=== PATIENT | male | born 1965 | race Caucasian/White ===

== ENCOUNTER 2017-05-18 21:49 | Inpatient (IN) | payer BC, OTHER ==
[~2017-05-18] VITALS: Ht 172.7 cm; Wt 86.2 kg
[2017-05-18 23:00] VITALS: BP 144/86
--- NOTE | 2017-05-18 23:00 | NUR ---
Pre-Admission Patient seen in intake office. Patient is noted to moderately intoxicated but stable at this time to continue with admission assessment. V/S noted as: 144/86, 76, 98.0, 18, 95%, 0/10. Policies on medication disposal explained and understood by patient. Will continue with admission process to unit.
--- NOTE | 2017-05-18 23:30 | NUR ---
Admission Patient is a 51 year old male from [facility], admitted to [facility] to receive treatment for his Opioid and Benzo Dependence. Patient was escorted on to unit by male TOY CONSULTANT where body check was rendered. Skin check rendered by male nurse with patient noted with two abdominal scars due to patients surgical history of colon resection and old Stoma site. Skin is noted intact. Patient is able to provide Urine drug screen upon arrival to unit. Patient verbalizes no known allergies. Height noted as 58 and weight noted as 190lbs. Patient is ambulatory with no assistance needed. Patient is visibly intoxicated and noted to answer questions with eyes closed. Breathing is even and non labored with no signs of SOB. No pain or discomfort verbalized. BUE and BLE noted to be WNL with no edema noted. Lung sounds clear with no cough noted. Bowel sounds are active in all 4 quadrants with LBM noted 05/18/17. Patient verbalizes past medical history as hyperlipidemia, HTN, GERD, History of Colon resection. All home medications reconciled. No history of Seizure noted. Patient denies any suicidal ideations. He describes his usage as: 1. Opioids-OxyContin, for the past month, 10-15 tabs of 30mg, PO or via nasal, with last dose take prior to admission 05/18/17 2100 taking 5 tabs of 30mg 2. Benzos- Klonopin, for the past month, 1-1.5 tabs of 2mg, PO, with the last dose taken prior to admission 05/18/17 2100 taking 2mg Patient explains All of surgeries started Nov of this year. My last surgery were they reconnected my colon and removed my colostomy was about a month ago. I was prescribed Oxys and it was down hill from there. I would get the Klonopin from a pill dealer only for sleeping purposes. Patient also explained of having 9 years sober between 2007 to 2014. Patient states when I was prescribed oxys it woke the beast up. Im glad I caught it when I did. Patient verbalizes his signs and symptoms of "sweaty, achy, chills, restless, nausea. 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 I need to call work tomorrow to make sure they are taken care off. Admission CIWA and COWS noted to be 0. All information relayed to Dr. Oconnell. Labs to be rendered. PRN medications available for increased signs and symptoms. Will continue plan of acre as ordered.
[2017-05-18] MEDS ORDERED: IBUPROFEN 600 MG TABLET PO PRN (23:45)
[2017-05-18] MEDS ORDERED: diphenhydrAMINE 50 MG CAPSULE PO PRN (23:45)
[2017-05-18] MEDS ORDERED: BUPRENORPHINE HCL 2 MG TAB.SUBL SL PRN (23:45)
[2017-05-18] MEDS ORDERED: METHOCARBAMOL 750 MG TABLET PO PRN (23:45)
[2017-05-18] MEDS ORDERED: LOPERAMIDE HCL 2 MG CAPSULE PO PRN ×2 (23:45)
[2017-05-18] MEDS ORDERED: ONDANSETRON 4 MG/2 ML VIAL IM PRN (23:45)
[2017-05-18] MEDS ORDERED: MAG HYDROX/AL HYDROX/SIMETH 30 ML LIQUID UDC PO PRN (23:45)
[2017-05-18] MEDS ORDERED: DICYCLOMINE HCL 20 MG TABLET PO PRN (23:45)
[2017-05-18] MEDS ORDERED: ACETAMINOPHEN 325 MG TABLET PO PRN (23:45)
[2017-05-18] MEDS ORDERED: CLONIDINE HCL 0.1 MG TABLET PO PRN (23:45)
[2017-05-18] MEDS ORDERED: MAGNESIUM HYDROXIDE 30 ML LIQUID UDC PO PRN (23:45)
[2017-05-18] MEDS ORDERED: ONDANSETRON ODT 4 MG TAB.RAPDIS SL PRN (23:45)
[2017-05-18] MEDS ORDERED: MIRALAX 17 GM POWD.PACK PO PRN (23:45)
[2017-05-18] MEDS ORDERED: LORAZEPAM 1 MG TABLET PO ONE (23:55)
[2017-05-19 00:03] LABS: *AMPHETAMINE, URINE NEGATIVE (NEGATIVE); *BARBITURATE, URINE NEGATIVE (NEGATIVE); *CANNABINOID, URINE NEGATIVE (NEGATIVE); *COCCAINE, URINE NEGATIVE (NEGATIVE); *PHENCYCLIDINE SCREEN,URINE NEGATIVE (NEGATIVE)
[2017-05-19 00:30] VITALS: BP 119/82
[2017-05-19 01:12] LABS: ETHANOL < 3 MG/DL (0-0)
[2017-05-19 01:17] LABS: ALANINE AMINOTRANSFERASE 11 U/L (16-63); ALKALINE PHOSPHATASE 80 U/L (50-136); ASPARTATE AMINOTRANSFERASE 14 U/L (15-37); BILIRUBIN,TOTAL 0.4 mg/dL (0.2-1.0); CARBON DIOXIDE 30 mmol/L (21-32); CHLORIDE 99 mmol/L (98-107); CREATININE 1.1 mg/dL (0.6-1.3); GLUCOSE 79 mg/dL (74-106); POTASSIUM 3.5 mmol/L (3.5-5.1); TOTAL PROTEIN, SERUM 8.8 g/dL (6.4-8.2); UREA NITROGEN, BLOOD 9 mg/dL (7-18)
[2017-05-19 01:18] LABS: BASOPHILS % (AUTO) 0.3 % (0.0-2.0); EOSINOPHILS # (AUTO) 0.1 K/uL (0.0-0.7); EOSINOPHILS % (AUTO) 1.2 % (0.0-7.0); HEMATOCRIT 42.7 % (40-50); HEMOGLOBIN 14.1 G/DL (14.0-18.0); LYMPHOCYTES % (AUTO) 23.6 % (20.5-51.5); MEAN CORPUSCULAR HEMOGLOBIN 27.6 UUG (27.0-31.0); MEAN CORPUSCULAR HGB CONC 33 g/dL (32.0-37.0); MONOCYTES # (AUTO) 0.5 K/UL (0.1-1.30); MONOCYTES % (AUTO) 5.4 % (0.0-11.0); NEUTROPHILS # (AUTO) 5.8 K/UL (1.8-8.9); NEUTROPHILS % (AUTO) 69.5 % (38.5-71.5); PLATELET COUNT (AUTO) 383 K/UL (150-450); RED BLOOD CELL COUNT(AUTO) 5.09 MIL/UL (4.7-6.1); WHITE BLOOD COUNT (AUTO) 8.4 K/UL (4.0-11.2)
[2017-05-19 01:27] LABS: THYROID STIMULATING HORMONE 1.073 mIU/mL (0.358-3.740)
[2017-05-19 02:00] LABS: *OPIATE, URINE POSITIVE (NEGATIVE)
[2017-05-19 04:00] VITALS: BP 123/60
[2017-05-19] MEDS ORDERED: SENN-167 PO (04:10)
[2017-05-19] MEDS ORDERED: AMLO5TAB2 PO (04:10)
[2017-05-19] MEDS ORDERED: DOCU100C36 PO (04:10)
[2017-05-19] MEDS ORDERED: RANI150T8 PO (04:13)
[2017-05-19] MEDS ORDERED: VALS160T2 PO (04:13)
[2017-05-19] MEDS ORDERED: SIMV20TA6 PO (04:13)
[2017-05-19] MEDS ORDERED: VENL75CA56 PO (04:14)
--- NOTE | 2017-05-19 07:17 | NUR ---
End of Shift Patient is in bed sleeping. Breathing even and non labored. No signs of pain or discomfort noted. Patient is a 51 year old male, admitted on 05/18/17 for Opioid and Benzo dependence. Patient is set to receive 5 day Ativan and 5 day Subutex taper. No known allergies, full code, regular diet, placed on fall and seizure precautions. Skin noted intact. Past medical history of HTN, Hyperlipidemia, GERD, Depression, and history of colon resection. Admission CIWA and COWS noted to be 0. All needs attended to promptly. Will endorse to continue plan of care as ordered.
[2017-05-19 08:00] VITALS: BP 119/77
[2017-05-19] MEDS: LORAZEPAM 1 MG TABLET PO SCH ×4 (08:13→21:31)
[2017-05-19] MEDS: MULTIVITAMINS,THERAPEUTIC TABLET PO SCH (08:14)
[2017-05-19] MEDS: BUPRENORPHINE HCL 2 MG TAB.SUBL SL SCH ×4 (08:14→21:00)
--- NOTE | 2017-05-19 08:15 | NUR ---
START OF SHIFT: RECEIVED PT A/O X 4. HE C/O ANXIETY AND RESTLESSNESS. ATIVAN /SUBUTEX TAPER WAS TO START THIS AM. ATIVAN ADMINISTERED BUT PT STATES HE WOULD LIKE TO WAIT UNTIL LATER TO START SUBUTEX HE STATES HE IS NOT IN TOTAL WITHDRAWAL AND IS FEARFUL. COWS 6 CIWA 4.OFFERED SUPPORT. WILL REASSESS COWS AND CIWA AT NOON. PPD PLANTED TO LFA. ENCOURAGED INCREASED FLUIDS. ENCOURAGED REST TODAY. WILL CONTINUE TO MONITOR AND OFFER SUPPORT.
[2017-05-19] MEDS ORDERED: TUBERCULIN,PURIF.PROT.DERIV. 5 TU/0.1 ML TEST ID ONE (09:00)
[2017-05-19 12:00] VITALS: BP 143/94
[2017-05-19 16:00] VITALS: BP 137/83
[2017-05-19] MEDS: VENLAFAXINE XR 75 MG CAP.SR.24H PO SCH (16:30)
[2017-05-19] MEDS: RANITIDINE 150 MG PO SCH (17:00)
--- NOTE | 2017-05-19 17:15 | NUR ---
COWS AND CIWA DEFERRED. MEDS HELD PT IS ASLEEP. RESPIRATIONS EVEN AND UNLABORED. BED LOCKED AND LOW. CALL RICHEY IN REACH. WILL CONTINUE TO MONITOR.
--- NOTE | 2017-05-19 18:46 | NUR ---
END OF SHIFT: PT ON SUBUTEX/ATIVAN TAPER. HELD SUBUTEX ALL DAY PT STATED HE WAS NOT READY FOR IT. ATIVAN ADMINISTERED. NOON COWS 5 CIWA 2 1600 COWS AND CIWA DEFERRED AND 1700 MEDS HELD PT WAS ASLEEP. PPD PLANTED TO LFA. PT COMPLIANT WITH INCREASED FLUIDS. WILL PASS SHIFT REPORT TO ONCOMING NIGHT NURSE
--- NOTE | 2017-05-19 19:30 | NUR ---
Start of Shift Patient Received. Patient is in activities room participating group meeting. Patient is a 51 year old male, admitted on 05/18/17 for Opioid and Benzo dependence. Patient is currently receiving a 5 day Ativan and 5 day Subutex taper. No known allergies, full code, regular diet, placed on fall and seizure precautions. Skin noted intact. Past medical history of HTN, Hyperlipidemia, GERD, Depression, and history of colon resection. Per endorsement patient has been noted to refuse Subutex. 1700 patients medications held due to patient sleeping. COWS and CIWA deferred. All needs attended to promptly. Will continue plan of care as ordered.
[2017-05-19 20:40] VITALS: BP 134/85
[2017-05-19] MEDS: SIMVASTATIN 20 MG PO SCH (21:30)
--- NOTE | 2017-05-19 21:40 | NUR ---
Subutex Refused Patient refused 2100 Subutex and verbalized I just dont think I need it. COWS noted to be 5. MD Aware. Will continue to monitor.
[2017-05-20 00:25] VITALS: BP 117/73
[2017-05-20 04:35] VITALS: BP 121/70
--- NOTE | 2017-05-20 07:11 | NUR ---
End of Shift Patient is in bed sleeping. Breathing even and non labored. No signs of pain or discomfort noted. Patient is a 51 year old male, admitted on 05/18/17 for Opioid and Benzo dependence. Patient is currently receiving a 5 day Ativan taper and 5 day Subutex taper. No known allergies, full code, regular diet, placed on fall and seizure precautions. Skin noted intact. Past medical history of HTN, Hyperlipidemia, GERD, Depression, and history of colon resection. Patient refused 2100 dose of Subutex. No PRN Medications administered. All needs attended to promptly. Will endorse to continue plan of care as ordered.
[2017-05-20 08:00] VITALS: BP 136/89
[2017-05-20] MEDS: MULTIVITAMINS,THERAPEUTIC TABLET PO SCH (08:05)
[2017-05-20] MEDS: LORAZEPAM 1 MG TABLET PO SCH ×3 (08:05→20:45)
[2017-05-20] MEDS: AMLODIPINE 5 MG TABLET PO SCH (08:05)
[2017-05-20] MEDS: VENLAFAXINE XR 75 MG CAP.SR.24H PO SCH (08:05)
--- NOTE | 2017-05-20 08:05 | NUR ---
START OF SHIFT: RECEIVED PT A/O X 4. HE C/O ANXIETY AND RESTLESSNESS,STOMACH CRAMPS, BODY ACHES,CHILLS,YAWNS,STUFFY NOSE AND FATIGUE.. ATIVAN /SUBUTEX TAPER IN PROGRESS. PRN BENTYL GIVEN FOR STOMACH CRAMPS. HE IS COMPLIANT WITH MEDS. COWS 13 CIWA 3 ENCOURAGED INCREASED FLUIDS. ENCOURAGED REST.OFFERED SUPPORT WILL CONTINUE TO MONITOR AND OFFER SUPPORT.
[2017-05-20] MEDS: RANITIDINE 150 MG PO SCH ×2 (08:06→17:44)
[2017-05-20] MEDS: BUPRENORPHINE HCL 2 MG TAB.SUBL SL SCH ×3 (08:06→20:45)
[2017-05-20] MEDS: SENNA 8.6 MG PO SCH (08:07)
[2017-05-20] MEDS: DOCUSATE 100 MG PO SCH (08:07)
[2017-05-20] MEDS: VALSARTAN 160 MG TABLET PO SCH (08:10)
[2017-05-20] MEDS ORDERED: PATIENT MAY USE OWN MED- MD OK PO SCH (09:00)
--- NOTE | 2017-05-20 10:32 | NUR ---
Therapist prompted client to attend daily group psychotherapy sessions. Client stated that he would attend.
[2017-05-20 12:00] VITALS: BP 130/83
[2017-05-20 14:08] LABS: HEPATITIS B SURFACE AG Negative (Negative)
[2017-05-20 16:00] VITALS: BP 135/97
[2017-05-20] MEDS: DICYCLOMINE HCL 20 MG TABLET PO SCH ×2 (16:11→20:45)
--- NOTE | 2017-05-20 18:50 | NUR ---
END OF SHIFT: PT ON SUBUTEX/ATIVAN TAPER. PT C/O BODY ACHES , CHILLS,STOMACH CRAMPS, ANXIETY AND RESTLESSNESS THIS AM AND SUBUTEX WAS ADMINISTERED ORDERED. HE CONTINUES ON ATIVAN/SUBUTEX TAPER LAST COWS 4 CIWA 4. HE STATES THE DETOX MEDS ARE EFFECTIVE. HE IS COMPLIANT WITH TREATMENT PLAN. PT VERBALLY EXPRESSED MOTIVATION TOWARD RECOVERY. WILL PASS SHIFT REPORT TO ONCOMING NIGHT NURSE.
[2017-05-20 20:00] VITALS: BP 111/76
--- NOTE | 2017-05-20 20:00 | NUR ---
Start of Shift Pt is a 51 year old male admitted for Opiate/Benzo dependence, placed on 5 day Subutex and 5 day Ativan taper. Pt reported using OxyContin 10 - 15 tabs of 30mg/daily x1 month and Klonopin 1 - 1.5 tabs of 2mg/daily x1 month. PMH: HTN, Hyperlipidemia, GERD, depression and hx of colon resection. NKA, regular diet, fall/seizure precautions - no hx of seizures and full code. Upon assessment, pt reports feeling anxious, chills throughout body, abdominal cramping, muscle aches, skin flushed - clammy, respirations even/unlabored, denies SOB/chest pain, denies n/v/d, bowel sounds active x4, abdomen soft. Safety measures in place, call light within reach, side rails up x2, bed locked and in low position. Will continue to monitor.
[2017-05-20] MEDS: SIMVASTATIN 20 MG PO SCH (20:45)
[2017-05-21] VITALS: BP 108/72
--- NOTE | 2017-05-21 | NUR ---
Vital Signs BP 108/72, pulse 70, respirations 22, SpO2 96% room air, temp 98.7, no pain 0/10 CIWA/COWS deferred d/t pt sleeping to assess while pt is awake as ordered. Safety measures in place, will continue to monitor.
[2017-05-21 04:00] VITALS: BP 121/60
[2017-05-21] MEDS: HYDROXYZINE PAMOATE 25 MG CAPSULE PO PRN (04:29)
--- NOTE | 2017-05-21 04:29 | NUR ---
PRN Administration Pt reports muscle aches throughout body and anxiety. Robaxin 750mg PRN and Vistaril 25mg PRN administered. Safety measures in place, will continue to monitor.
--- NOTE | 2017-05-21 05:29 | NUR ---
PRN Administration Upon reassessment, pt is in bed, resting with eye closed, no s/s of acute distress noted, respirations even/unlabored. Safety measures in place, will continue to monitor. Addendum: 05/21/17 at 0722 by PHUONG TORREZ RN REASSESSMENT
--- NOTE | 2017-05-21 07:00 | NUR ---
End of Shift Pt is a 51 year old male admitted for Opiate/Benzo dependence, placed on 5 day Subutex and 5 day Ativan taper. Pt reported using OxyContin 10 - 15 tabs of 30mg/daily x1 month and Klonopin 1 - 1.5 tabs of 2mg/daily x1 month. PMH: HTN, Hyperlipidemia, GERD, depression and hx of colon resection. NKA, regular diet, fall/seizure precautions - no hx of seizures and full code. During shift, pt reported feeling anxious, chills throughout body, abdominal cramping, muscle aches, skin flushed - clammy - scheduled taper medications administered effective in management of s/s of withdrawal as reports per pt, COWS 5 and CIWA 4. Robaxin 750mg PRN and Vistaril 25mg PRN administered for body aches and anxiety. Pt slept for 6 hours, intake of 1350 ml PO, voids x3 and stool x0. Safety measures in place, call light within reach, side rails up x2, bed locked and in low position. Endorsed to day shift nurse.
--- NOTE | 2017-05-21 08:07 | NUR ---
Start of shift 320 Cottage Supervisor received pt from [facility] nurse. Pt is a 51 year old male admitted on 05/18/17 for oxycontin and klonopin detoxification. Currently on a 5 day Ativan and 5 day Subutex taper, tolerating well. Pt PMH of HTN, Hyperlipidemia, GERD, depression and a colon resection. Pt denies allergies, is a full code and is on a regular diet. Pts last COWS of 5 and CIWA of 4 were recorded at 0000. [facility] nurse administered Robaxin and Vistaril on her shift, PRN. Cottage Supervisor encounters pt in bed resting with eyes closed and unlabored and even respirations. Bed in low position, rails up x2, wheels locked and call light within reach. Will continue to monitor, support and encourage according to plan of care.
[2017-05-21 08:09] VITALS: BP 127/82
[2017-05-21] MEDS: DOCUSATE 100 MG PO SCH (08:51)
[2017-05-21] MEDS: SENNA 8.6 MG PO SCH (08:51)
[2017-05-21] MEDS: VALSARTAN 160 MG TABLET PO SCH (08:51)
[2017-05-21] MEDS: MULTIVITAMINS,THERAPEUTIC TABLET PO SCH (08:52)
[2017-05-21] MEDS: RANITIDINE 150 MG PO SCH ×2 (08:52→17:13)
[2017-05-21] MEDS: LORAZEPAM 1 MG TABLET PO SCH ×4 (08:53→21:01)
[2017-05-21] MEDS: VENLAFAXINE XR 75 MG CAP.SR.24H PO SCH (08:53)
[2017-05-21] MEDS: AMLODIPINE 5 MG TABLET PO SCH (08:53)
[2017-05-21] MEDS: DICYCLOMINE HCL 20 MG TABLET PO SCH ×3 (08:55→21:01)
[2017-05-21] MEDS ORDERED: BUPRENORPHINE HCL 2 MG TAB.SUBL SL SCH (09:00)
[2017-05-21 12:57] VITALS: BP 141/91
[2017-05-21] MEDS: BUPRENORPHINE HCL 2 MG TAB.SUBL SL SCH ×2 (14:25→21:02)
[2017-05-21 16:20] VITALS: BP 134/81
--- NOTE | 2017-05-21 18:50 | NUR ---
START SHIFT NOTE: Patient is a 51 year old male admitted to [facility] on 05/18/2017 for Benzodiazepines and Opioid dependence. Patient placed under Doctor Chip Oconnell MD medical supervision care. Patient continue 5 Day Subutex and 5 Day Ativan Taper since 05/19/2017, which tolerated well without ASE. Patient remains compliant with treatment, medications, and diet regime. Patient reports NKA, is on Full Code, is on Regular Diet, placed on Fall and Seizures Precautions. Past Medical History: Anxiety, Depression, History of Seizures ("Sz 7"), History of Colon Resection, Hyperlipidimia, HTN, GERD. Patient reports Substance Use: Oxycontin (Oxycodone) PO: "10-15 tabs of 30 mg each tab. during last one month. Last used 5 tabs of 30 mg each tab. - 150 mg - on 05/18/2017 at 2100". Klonopin (Clonazepam) PO:"1-15 tabs of 2 mg during last month. Last used 1 tab of 2 mg on 05/18/2017". Patient reports Recent Treatment History:"Myrtle Ramos", [place], 2016. "[place]", [place], 2018. Upon endorsement, patient is ambulatory with steady gate, stable, AOx4, speech is soft and clear. COWS 7, CIWA 5. Patient presented with anxiety, agitation, nervousness, mild body aches, nasal stuffy/moist eyes, very mild headache, and restlessness. VS WNL. Respirations unlabored and even. Lungs Sounds are clear bilaterally. Bowel Sounds active in all x4 quadrants. Last Bowel Movement was "05/21/17 at 1100". Skin is intact, warm and dry to touch. Encouraged fluids as tolerated. Safety measures on place. Call light within reach, bed in lowest position and locked, padded rails up bilaterally rails up bilaterally. Will continue to monitor closely.
--- NOTE | 2017-05-21 18:50 | NUR ---
End of Shift Garment Manufacturer provided report to NOC nurse, with no further comments, questions or concerns voiced. Pt is a 51 year old male admitted on 05/18/17 for oxycontin and klonopin detoxification. Currently on a 5 day Ativan and 5 day Subutex taper, tolerating well. Pt PMH of HTN, Hyperlipidemia, GERD, depression and a colon resection. Pt denies allergies, is a full code and is on a regular diet. Pts last COWS of 5 and CIWA of 3 were recorded at 1600. Pt made no request for PRN medication. Pt is calm and cooperative, polite and pleasant, A/O x4 and able to make his needs known. Pt has been participating in treatment, attending groups and is medication complaint. Bed in low position, rails up x2, wheels locked and call light within reach. All safety measures in place.
[2017-05-21 20:00] VITALS: BP 137/90
[2017-05-21] MEDS: GABAPENTIN 300 MG CAPSULE PO SCH (21:01)
[2017-05-21] MEDS: BACLOFEN 10 MG TABLET PO SCH (21:01)
[2017-05-21] MEDS: SIMVASTATIN 20 MG PO SCH (21:07)
[2017-05-22] VITALS: BP 107/63
[2017-05-22 04:00] VITALS: BP 122/74
--- NOTE | 2017-05-22 07:11 | NUR ---
END OF SHIFT NOTE: Patient endorsed to day shift nurse in stable condition. Report given. Patient is a 51 year old male admitted to [facility] on 05/18/2017 for Benzodiazepines and Opioid dependence. Patient placed under Doctor Chip Oconnell MD medical supervision care. Patient continue 5 Day Subutex and 5 Day Ativan Taper since 05/19/2017, which tolerated well without ASE. Patient remains compliant with treatment, medications, and diet regime. Patient reports NKA, is on Full Code, is on Regular Diet, placed on Fall and Seizures Precautions. Past Medical History: Anxiety, Depression, History of Seizures ("Sz 7"), History of Colon Resection, Hyperlipidimia, HTN, GERD. Patient reports Substance Use: Oxycontin (Oxycodone) PO: "10-15 tabs of 30 mg each tab. during last one month. Last used 5 tabs of 30 mg each tab. - 150 mg - on 05/18/2017 at 2100". Klonopin (Clonazepam) PO:"1-15 tabs of 2 mg during last month. Last used 1 tab of 2 mg on 05/18/2017". Last COWS decreased from 7 to 3, and CIWA decreased from 5 to 4 at 0400. Last night patient presented with anxiety, agitation, nervousness, body aches, nasal stuffy/moist eyes, very mild headache, and restlessness. VS at 0400: T: 98.5, BP: 122/74, HR: 62, RR: 18, O2 SAT: 97%, pain level:"0/10". Respirations unlabored and even. Patient denies SOB and chest pain. Skin is warm and dry to touch. No PRN Medications given during last maintenance mechanic 2nd shift. Encouraged fluids as tolerated. Patient slept 6 hours 25 minutes, intake 1,100 ml, voided x2. All needs met. Safety measures on place. Call light within reach, bed in lowest position and locked, padded rails up bilaterally.
--- NOTE | 2017-05-22 07:54 | NUR ---
Start of shift Multi Operation Forming Machine Setter received pt from [facility] nurse. Pt is a 51 year old male admitted on 05/18/17 for oxycontin and klonopin detoxification. Currently on a 5 day Ativan and 5 day Subutex taper, tolerating well. Pt PMH of HTN, Hyperlipidemia, GERD, depression and a colon resection. Pt denies allergies, is a full code and is on a regular diet. Pts last COWS of 3 and CIWA of 4 were recorded at 0400. [facility] nurse did not administer PRN medication. Multi Operation Forming Machine Setter encounters pt in bed A/O x4, pt is calm and cooperative, with a full range of emotion and congruent affect. Bed in low position, rails up x2, wheels locked and call light within reach. Will continue to monitor, support and encourage according to plan of care.
[2017-05-22 08:16] VITALS: BP 103/64
[2017-05-22] MEDS: LORAZEPAM 1 MG TABLET PO SCH ×3 (08:43→21:40)
[2017-05-22] MEDS: DICYCLOMINE HCL 20 MG TABLET PO SCH ×3 (08:43→21:40)
[2017-05-22] MEDS: DOCUSATE 100 MG PO SCH (08:44)
[2017-05-22] MEDS: GABAPENTIN 300 MG CAPSULE PO SCH ×2 (08:44→21:39)
[2017-05-22] MEDS: MULTIVITAMINS,THERAPEUTIC TABLET PO SCH (08:44)
[2017-05-22] MEDS: SENNA 8.6 MG PO SCH (08:44)
[2017-05-22] MEDS: RANITIDINE 150 MG PO SCH ×2 (08:44→16:35)
[2017-05-22] MEDS: BACLOFEN 10 MG TABLET PO SCH ×3 (08:44→21:39)
[2017-05-22] MEDS: VENLAFAXINE XR 75 MG CAP.SR.24H PO SCH (08:44)
[2017-05-22] MEDS: VALSARTAN 160 MG TABLET PO SCH (08:45)
[2017-05-22] MEDS: AMLODIPINE 5 MG TABLET PO SCH (08:45)
[2017-05-22] MEDS: BUPRENORPHINE HCL 2 MG TAB.SUBL SL SCH ×3 (08:45→21:41)
--- NOTE | 2017-05-22 10:30 | NUR ---
Therapist prompted client about group times. Client stated he will attend all groups today.
[2017-05-22 13:02] VITALS: BP 113/84
[2017-05-22 16:25] VITALS: BP 118/78
--- NOTE | 2017-05-22 18:55 | NUR ---
End of Shift Optical Instrument Specialist provided report to NOC nurse, with no further comments, questions or concerns voiced. Pt is a 51 year old male admitted on 05/18/17 for oxycontin and klonopin detoxification. Currently on a 5 day Ativan and 5 day Subutex taper, tolerating well. Pt PMH of HTN, Hyperlipidemia, GERD, depression and a colon resection. Pt denies allergies, is a full code and is on a regular diet. Pts last COWS of 3 and CIWA of 2 were recorded at 1600. Pt made no request for PRN medication. Optical Instrument Specialist did hold pt's HTN medication due to low blood pressure, 103/64, MD aware. Pt is calm and cooperative, polite and pleasant, A/O x4 and able to make his needs known. Pt has been participating in treatment, attending groups and is medication complaint. Bed in low position, rails up x2, wheels locked and call light within reach. All safety measures in place.
--- NOTE | 2017-05-22 19:15 | NUR ---
START OF SHIFT Received 51 year old male patient admitted on 05/18/17 for opiate and Benzo dependency. Pt is full code with NKA. He reports a PMHx of HTN, hyperlipidemia, GERD, depression and colon resection. He reports using Oxycontin 10-15 tabs of 30 mg daily for 1 month. Last dose was 5 tabs of 30 mg on . Klonopin 1-1.5 tabs of 2 mg (only for sleep) for one month. Last dose was 1 tab (2mg) on 05/18/17. Pt denies history of seizure. He is placed on a 5 day Subutex and 5 day Ativan taper and tolerating well. Per endorsement pts BP medications were held d/t decreased BP. He did not receive or request PRN medications. He is alert and oriented x4. Breathing is even and unlabored, safety measures in place. Will continue to monitor.
[2017-05-22 20:00] VITALS: BP 123/72
[2017-05-22] MEDS: SIMVASTATIN 20 MG PO SCH (21:41)
--- NOTE | 2017-05-23 | NUR ---
VITALS REFUSED, COWS/CIWA DEFERRED 0000 vitals refused. COWS, CIWA deferred d/t pt lying in bed with eyes closed noted to be asleep. Respirations 16, breathing is even and unlabored. Safety measures in place. Will continue to monitor.
--- NOTE | 2017-05-23 04:00 | NUR ---
VITALS REFUSED/ COWS,CIWA DEFERRED 0400 vitals refused. COWS, CIWA deferred d/t pt lying in bed with eyes closed noted to be asleep. Respirations 16, breathing is even and unlabored. Safety measures in place. Will monitor.
--- NOTE | 2017-05-23 07:04 | NUR ---
END OF SHIFT Pt is a 51 year old male patient admitted on 05/18/17 for opiate and Benzo dependency. Pt is full code with NKA. He reports a PMHx of HTN, hyperlipidemia, GERD, depression and colon resection. He is continues on a 5 day Subutex and 5 day Ativan taper , currently on day 5 tolerating well. He did not receive or request PRN medications. He slept a total of 6 hrs,Intake: 1210mL Void:x3 BM:0 COWS:4, CIWA:3. He remains alert and oriented x4. Breathing is even and unlabored, safety measures in place. Endorsed to oncoming shift.
--- NOTE | 2017-05-23 07:53 | NUR ---
START OF SHIFT NOTE Received report from night nurse, 51 year old male admitted for Opiate/Benzo dependence. NKA, regular diet, fall/seizure precautions no history of seizures and full code. Pt cont on 5 day Subutex and 5 day Ativan taper. Pt reported using OxyContin 10 - 15 tabs of 30mg/daily x1 month and Klonopin 1 - 1.5 tabs of 2mg/daily x1 month. Pt reported PMH: HTN, Hyperlipidemia, GERD, depression and history of colon resection. Pt did not receive any PRN during last night, slept for 6 hours. Last CIWA-3, COWS-4. Upon assessment, Pt is alert awake oriented x4 . Breathing normal no SOB noted. Respirations even unlabored, denies SOB/chest pain, denies n/v/d, bowel sounds active x4, abdomen soft. Safety measures in place, call light within reach, side rails up x2, bed locked and in low position. Will continue to monitor.
[2017-05-23 08:00] VITALS: BP 110/66
[2017-05-23] MEDS: BACLOFEN 10 MG TABLET PO SCH ×3 (08:47→21:53)
[2017-05-23] MEDS: VENLAFAXINE XR 75 MG CAP.SR.24H PO SCH (08:47)
[2017-05-23] MEDS: GABAPENTIN 300 MG CAPSULE PO SCH ×2 (08:48→21:52)
[2017-05-23] MEDS: AMLODIPINE 5 MG TABLET PO SCH (08:48)
[2017-05-23] MEDS: LORAZEPAM 1 MG TABLET PO SCH ×2 (08:48→21:53)
[2017-05-23] MEDS: DICYCLOMINE HCL 20 MG TABLET PO SCH ×3 (08:48→21:52)
[2017-05-23] MEDS: BUPRENORPHINE HCL 2 MG TAB.SUBL SL SCH ×2 (08:48→21:52)
[2017-05-23] MEDS: RANITIDINE 150 MG PO SCH ×2 (08:49→17:01)
[2017-05-23] MEDS: VALSARTAN 160 MG TABLET PO SCH (08:49)
[2017-05-23] MEDS: SENNA 8.6 MG PO SCH (08:50)
[2017-05-23] MEDS: MULTIVITAMINS,THERAPEUTIC TABLET PO SCH (08:50)
[2017-05-23] MEDS: DOCUSATE 100 MG PO SCH (08:50)
[2017-05-23 12:00] VITALS: BP 129/83
[2017-05-23 16:00] VITALS: BP 117/84
[2017-05-23] MEDS: FLUTICASONE PROP NASAL SPRAY 16 GM BOTTLE NS SCH (17:00)
--- NOTE | 2017-05-23 19:10 | NUR ---
END OF SHIFT NOTE Gave report to night nurse, 51 year old male admitted for Opiate/Benzo dependence, placed on 5 day Subutex and 5 day Ativan taper. Pt reported using OxyContin 10 - 15 tabs of 30mg/daily x1 month and Klonopin 1 - 1.5 tabs of 2mg/daily x1 month. PMH: HTN, Hyperlipidemia, GERD, depression and hx of colon resection. NKA, regular diet, fall/seizure precautions, no hx of seizures and full code. During shift pt did not receive any PRN, Last CIWA-4, COWS-4. Vital signs remained stable. Pt remained compliant with care and medications. During shift pt was seen by MD Son, and Psychiatrist. Safety measures in place, Call light within reach. Pt endorsed to night nurse in stable condition.
[2017-05-23 20:00] VITALS: BP 124/78
--- NOTE | 2017-05-23 20:00 | NUR ---
Start of Shift Note: Report received from day shift nurse. Pt is a 51 Y/O male admitted on 05/18/2017 for medically-supervised withdrawal from opiates and benzodiazepines. Pt reports taking 10-15 tabs of 30mg OxyContin and 2-3mg Klonopin daily for one month. Pt is on 5-day Ativan and Subutex tapers. Pt received with last COWS=4, CIWA=4, and no PRN medications were given during day shift. Pt is a full code, reports NKA, and on a regular diet,. Pt reports PMHx: hyperlipidemia, GERD, HTN, depression, Hx of colon perforation with resection. Pt received in room and reports anxiety and diaphoresis. Bed is in low position and locked, side rails up x2, call light within reach. Will continue to monitor.
[2017-05-23] MEDS: SIMVASTATIN 20 MG PO SCH (21:54)
[2017-05-24] VITALS: BP 112/62
--- NOTE | 2017-05-24 | NUR ---
COWS/CIWA Deferred: COWS and CIWA are deferred for sleep. V/S stable. All safety precautions are in place. Will continue to monitor. Addendum: 05/24/17 at 0138 by OSBALDO TORRES RN Amended: Links added.
[2017-05-24 04:00] VITALS: BP 108/69
--- NOTE | 2017-05-24 04:00 | NUR ---
COWS/CIWA Deferred: COWS/CIWA assessments are deferred for sleep. V/S stable. All safety precautions are in place. Will continue to monitor. Addendum: 05/24/17 at 0456 by OSBALDO TORRES RN Amended: Links added.
--- NOTE | 2017-05-24 06:49 | NUR ---
End of Shift Note: Pt is a 51 Y/O male admitted to [facility] on 05/18/2017 for medically-supervised withdrawal from opiates and benzodiazepines. Pt reports a PMHx of hyperlipidemia, GERD, HTN, depression, and Hx of colon perforation with resection. Pt is a full code. Pt reports NKA. Pt is on a regular diet. Pt reported taking 10-15 tabs of 30mg OxyContin and 2-3mg Klonopin daily for one month and was placed on 5-day Ativan and Subutex tapers. Scheduled medication regime effectively managed s/s of withdrawal this shift, and no PRN medications were necessary. Last COWS=4, CIWA=4 at 20:00. V/S stable throughout shift with tachycardia. Total fluid intake this shift: 1206 ml; output: urine x 4 and BM x 1. Pt is currently in bed and slept 6 hours this shift. All needs attended and met. Pt endorsed to day shift nurse.
[2017-05-24 08:00] VITALS: BP 137/84
--- NOTE | 2017-05-24 08:04 | NUR ---
START OF SHIFT NOTE Received report from night nurse, 51 year old male admitted for Opiate/Benzo dependence. NKA, regular diet, fall/seizure precautions no history of seizures and full code. Pt cont on 5 day Subutex and 5 day Ativan taper. Pt reported using OxyContin 10-15 tabs of 30mg/daily x1 month and Klonopin 1-1.5 tabs of 2mg/daily x1 month. Pt reported PMH: HTN, Hyperlipidemia, GERD, depression and history of colon resection. Pt did not receive any PRN during last night, slept for 6 hours. Last CIWA-4, COWS-4. Upon assessment, Pt is alert awake oriented x4. Breathing normal no SOB noted. Respirations even unlabored, denies SOB/chest pain, denies n/v/d, bowel sounds active x4, abdomen soft. Safety measures in place, call light within reach, side rails up x2, bed locked and in low position. Will continue to monitor.
[2017-05-24] MEDS: VENLAFAXINE XR 75 MG CAP.SR.24H PO SCH (08:27)
[2017-05-24] MEDS: GABAPENTIN 300 MG CAPSULE PO SCH ×2 (08:27→22:41)
[2017-05-24] MEDS: BACLOFEN 10 MG TABLET PO SCH ×3 (08:27→22:41)
[2017-05-24] MEDS: MULTIVITAMINS,THERAPEUTIC TABLET PO SCH (08:27)
[2017-05-24] MEDS: FLUTICASONE PROP NASAL SPRAY 16 GM BOTTLE NS SCH ×2 (08:27→16:12)
[2017-05-24] MEDS: DICYCLOMINE HCL 20 MG TABLET PO SCH ×3 (08:28→22:41)
[2017-05-24] MEDS: AMLODIPINE 5 MG TABLET PO SCH (08:28)
[2017-05-24] MEDS: VALSARTAN 160 MG TABLET PO SCH (08:29)
[2017-05-24] MEDS: DOCUSATE 100 MG PO SCH (08:32)
[2017-05-24] MEDS: RANITIDINE 150 MG PO SCH ×2 (08:33→16:12)
[2017-05-24] MEDS: SENNA 8.6 MG PO SCH (08:34)
[2017-05-24] MEDS ORDERED: BUPRENORPHINE HCL 2 MG TAB.SUBL SL SCH (09:00)
[2017-05-24 12:00] VITALS: BP 142/96
--- NOTE | 2017-05-24 15:01 | NUR ---
Therapist prompted client about group times. Client stated he would attend all groups today.
[2017-05-24 15:38] LABS: *AMPHETAMINE, URINE NEGATIVE (NEGATIVE); *BARBITURATE, URINE NEGATIVE (NEGATIVE); *CANNABINOID, URINE NEGATIVE (NEGATIVE); *COCCAINE, URINE NEGATIVE (NEGATIVE); *OPIATE, URINE NEGATIVE (NEGATIVE); *PHENCYCLIDINE SCREEN,URINE NEGATIVE (NEGATIVE)
[2017-05-24 16:00] VITALS: BP 139/95
[2017-05-24] MEDS ORDERED: DIPH50CA37 PO (16:48)
[2017-05-24] MEDS ORDERED: GABA-534 PO (16:48)
[2017-05-24] MEDS ORDERED: DICY20TA28 PO (16:48)
[2017-05-24] MEDS ORDERED: IBUP-1955 PO (16:48)
[2017-05-24] MEDS ORDERED: BACL10TA PO (16:48)
[2017-05-24] MEDS ORDERED: HYDR-3895 PO (16:48)
--- NOTE | 2017-05-24 19:12 | NUR ---
END OF SHIFT NOTE Pt completed his Subutex and Ativan taper tolerated well. During shift pt did not receive any PRN. Last CIWA-4, COWS-4. Pt attended groups and activities. Encouraged pt increased Po fluids intake as tolerated and attend groups and activities to learn new coping skills. Vital signs remained stable. Pt remained compliant with care and medications. During shift pt was seen by MD Son, Kourtney, and Psychiatrist. Pt scheduled for discharged in AM, Urine drug screen completed and placed in the chart. Safety measures in place, Call light within reach. Pt endorsed to night nurse in stable condition.
--- NOTE | 2017-05-24 19:14 | NUR ---
Start of shift note Received report from day shift nurse. Pt is a 51 yo male, A+Ox4, presenting to [facility] for Opiate/Benzo dependence. Pt has NKA, is on full Code status, and on Regular diet. Pt is on Fall and Seizure precautions. Pt has HX of HTN, Hyperlipidemia, GERD, Depression, and Colon Resection. Pt has completed 5 day Ativan and 5 day Subutex tapers, tolerated well, and is due for discharge tomorrow. No s/s of distress noted at this time. Respirations even and unlabored. Will continue to monitor.
[2017-05-24 20:08] VITALS: BP 150/93
[2017-05-24] MEDS: SIMVASTATIN 20 MG PO SCH (22:42)
--- NOTE | 2017-05-24 22:44 | NUR ---
PRN Benadryl Pt c/o inability to sleep and requested for PRN Benadryl. Medication given and tolerated well. Will reassess within 1 HR. Will continue to monitor.
--- NOTE | 2017-05-24 23:40 | NUR ---
PRN Benadryl Reassessment Medication effective. Pt is resting well in bed. No s/s of ASE/distress noted at this time. Respirations even and unlabored. Will continue to monitor.
[2017-05-25 00:11] VITALS: BP 132/87
[2017-05-25 04:29] VITALS: BP 125/71
--- NOTE | 2017-05-25 07:05 | NUR ---
End of shit note Pt is a 51 yo male, A+Ox4, presenting to [facility] for Opiate/Benzo dependence. Pt has NKA, is on full Code status, and on Regular diet. Pt is on Fall and Seizure precautions. Pt has HX of HTN, Hyperlipidemia, GERD, Depression, and Colon Resection. Pt has completed 5 day Ativan and 5 day Subutex tapers, tolerated well, and is due for discharge today. Pt was given PRN Benadryl @7931. Last COWS: 2 and Last CIWA: 2 @0400. No s/s of distress noted at this time. Respirations even and unlabored. Will endorse to day shift nurse. Addendum: 05/25/17 at 0714 by AHSAN MOSQUEDA LVN End of shift note, Pt slept for a total of 7 HRS.
--- NOTE | 2017-05-25 07:43 | NUR ---
START OF SHIFT NOTE Received report from night nurse, 51 year old male admitted for Opiate/Benzo dependence. NKA, regular diet, fall/seizure precautions no history of seizures and full code. Pt cont on 5 day Subutex and 5 day Ativan taper. Pt reported using OxyContin 10 - 15 tabs of 30mg/daily x1 month and Klonopin 1 - 1.5 tabs of 2mg/daily x1 month. Pt reported PMH: HTN, Hyperlipidemia, GERD, depression and history of colon resection. 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 Last CIWA-2, COWS-2. Upon assessment, Pt is alert awake oriented x4 . Breathing normal no SOB noted. Respirations even unlabored, denies SOB/chest pain, denies n/v/d, bowel sounds active x4, abdomen soft. Safety measures in place, call light within reach, side rails up x2, bed locked and in low position. Will continue to monitor.
[2017-05-25 08:00] VITALS: BP 136/84
[2017-05-25] MEDS: FLUTICASONE PROP NASAL SPRAY 16 GM BOTTLE NS SCH (08:15)
[2017-05-25] MEDS: GABAPENTIN 300 MG CAPSULE PO SCH (08:15)
[2017-05-25] MEDS: BACLOFEN 10 MG TABLET PO SCH (08:16)
[2017-05-25] MEDS: VENLAFAXINE XR 75 MG CAP.SR.24H PO SCH (08:16)
[2017-05-25] MEDS: DICYCLOMINE HCL 20 MG TABLET PO SCH (08:16)
[2017-05-25] MEDS: MULTIVITAMINS,THERAPEUTIC TABLET PO SCH (08:16)
[2017-05-25] MEDS: AMLODIPINE 5 MG TABLET PO SCH (08:16)
[2017-05-25] MEDS: RANITIDINE 150 MG PO SCH (08:17)
[2017-05-25] MEDS: DOCUSATE 100 MG PO SCH (08:17)
[2017-05-25] MEDS: VALSARTAN 160 MG TABLET PO SCH (08:17)
[2017-05-25] MEDS: SENNA 8.6 MG PO SCH (08:17)
[2017-05-25] MEDS: HYDROXYZINE PAMOATE 25 MG CAPSULE PO PRN (08:31)
[2017-05-25 08:32] VITALS: BP 136/84
--- NOTE | 2017-05-25 08:32 | NUR ---
PRN MEDS Pt c/o of anxiety, sweats, headache. Pt medicated with PRN [id number] Po, Clonidine 0.1mg Po,Vistaril 25mg Po. Will cont to monitor and reassess. Addendum: 05/25/17 at 0955 by STEFANIE MCCAIN LVN Pt reported Headache-02/15.
--- NOTE | 2017-05-25 09:32 | NUR ---
REASSESSMENT Pt reported medications effective, headache /10, anxiety and sweats subside.
--- NOTE | 2017-05-25 14:40 | NUR ---
DISCHARGE NOTE Pt was admitted for Opioid dependence. Last COWS-0, CIWA-0. VS are WNL. Pt stated that he has no pain, discomfort or s/s of withdrawal at this time. Denies any thoughts os SI/HI. Pt states that he feels ready for discharge.Verbalized his understanding of the discharge instructions. 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 All belongings returned to pt. Pt ID band removed, pt ambulated off of the unit. Pt left via [facility] via [facility].
== END 2017-05-25 14:10 | disposition home or self-care (01) | DRG 895 ==
LOC: SRC 22:08
PROVIDERS: ADMIT Internal Medicine; ATTEND Internal Medicine
PROC: HZ2ZZZZ Detoxification Services for Substance Abuse Treatment (ICD-10-PCS; principal; 2017-05-18)
PROC: HZ41ZZZ Group Counseling for Substance Abuse Treatment, Behavioral (ICD-10-PCS; 2017-05-20)
PROC: HZ31ZZZ Individual Counseling for Substance Abuse Treatment, Behavioral (ICD-10-PCS; 2017-05-20)
DX: F11.23 Opioid dependence with withdrawal (principal); F33.2 Major depressive disorder, recurrent severe without psychotic features; I15.9 Secondary hypertension, unspecified; E78.5 Hyperlipidemia, unspecified; F17.200 Nicotine dependence, unspecified, uncomplicated; F41.9 Anxiety disorder, unspecified; F13.230 Sedative, hypnotic or anxiolytic dependence with withdrawal, uncomplicated; K21.9 Gastro-esophageal reflux disease without esophagitis; Z98.890 Other specified postprocedural states
CPT/HCPCS: 36415; 70030-TC; 80307; 80346; 80361; 83735; 84443; 85025; 86580; 86592; 86705; 86803; 87340; 87806; G0480; J3535; Q0163